=== PATIENT | female | born 1935 | race Caucasian/White ===

== ENCOUNTER 2018-12-22 17:15 | Emergency (ER) | payer MEDICARE, BC ==
[~2018-12-22] VITALS: Ht 160 cm; Wt 81.6 kg
--- NOTE | 2018-12-22 17:36 | NUR ---
CHARY FROM HOME FOR GLF; PT AAOX4, PT ON MONTITOR, VSS, NAD NOTED, PENDING ER PROVIDER EVAL
[2018-12-22] MEDS ORDERED: TDAP [DIPH/PERTUSSIS/TET] 0.5 ML VIAL IM ONE ×2 (18:00→19:53)
[2018-12-22] MEDS ORDERED: LIDOCAINE 1%-EPI 1:100,000 20 ML VIAL TP ONE (18:00)
[2018-12-22] MEDS ORDERED: LIDOCAINE 1%-EPI 1:100,000 20 ML VIAL ONE (18:17)
--- NOTE | 2018-12-22 19:35 | NUR ---
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 THU PARR [phone]
[2018-12-22 20:03] VITALS: BP 169/70
--- NOTE | 2018-12-22 20:26 | NUR ---
EILEEN ETA 20MINS
--- NOTE | 2018-12-22 21:00 | NUR ---
Patient discharged to home in stable condition. Written and verbal after care instructions given. Patient verbalizes understanding of instruction.
== END 2018-12-22 21:57 | disposition home or self-care (01) ==
LOC: ER 17:21
DX: S81.812A Laceration without foreign body, left lower leg, initial encounter (principal); W01.198A Fall on same level from slipping, tripping and stumbling with subsequent striking against other object, initial encounter; Y93.89 Activity, other specified; Y92.002 Bathroom of unspecified non-institutional (private) residence as the place of occurrence of the external cause; Y99.8 Other external cause status
CPT/HCPCS: 12004; 71046; 73080; 73590; 90471; 90715; 99283; A4606; A6402; J3490